=== PATIENT | male | born 2000 | race Native Hawaiian/Other Pacific Islander ===

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

== ENCOUNTER 2021-02-13 18:32 | Emergency (ER) | payer OTHER ==
[~2021-02-13] VITALS: Ht 188 cm; Wt 113.4 kg
[2021-02-13 19:26] LABS: PLATELET COUNT 322 K/uL (142-355)
[2021-02-13 19:39] LABS: POTASSIUM 3.9 mmol/L (3.6-5.2); SODIUM 141 mmol/L (136-145)
[2021-02-13 20:25] VITALS: BP 138/88; TEMP 98.5
== END 2021-02-13 20:25 | disposition home or self-care (01) ==
LOC: ED 18:32
PROVIDERS: Emergency Medicine
DX: R07.89 Other chest pain (principal); R00.0 Tachycardia, unspecified
CPT/HCPCS: 36415; 80048; 84484; 85027; 85379; 93005; 99284

== ENCOUNTER 2021-02-21 08:32 | Outpatient (CLI) | payer OTHER ==
[~2021-02-21] VITALS: Ht 190.5 cm; Wt 113.4 kg
[2021-02-21 09:09] VITALS: BP 118/72; TEMP 98.8
== END 2021-02-21 20:20 | disposition home or self-care (01) ==
LOC: INF 08:32
PROVIDERS: ATTEND Family Medicine
DX: Z23 Encounter for immunization (principal); U07.1 COVID-19
CPT/HCPCS: 96365; M0244